=== PATIENT | male | born 1950 | race American Indian/Alaskan Native ===

== ENCOUNTER 2020-08-31 13:53 | Emergency (ER) | payer MEDICARE, MEDICAID ==
[2020-08-31] MEDS ORDERED: HYDROcodone/ACETAMINOPHEN 10-325MG TAB PO ONE (15:32)
--- NOTE | 2020-08-31 15:32 | Emergency Department Report ---
ED Lower Extremity HPI - General Chief Complaint: Extremity Injury, Lower Stated Complaint: LEFT LEG INJURY Time Seen by Provider: 08/31/20 14:56 Source: patient Mode of arrival: Wheelchair Limitations: No Limitations - History of Present Illness Initial Comments: 70-year-old male presents to the ER today with complaints of left knee pain. Patient states that he slipped and fell in his driveway while she was pulling his trash can back out of the road. Patient states that he landed with his knee in a hyperflexed position. He reports significant pain as well as swelling and some mild bruising to his left knee. Patient reports significant pain on weightbearing and ambulation and flexion of the knee. He denies any prior injury or surgeries to that knee. He states that he took some Advil prior to coming in but still painful. He denies any head injury or any other symptoms. MD Complaint: other (left knee injury ) -: Sudden - Related Data Previous Rx's Medication Instructions Recorded Last Taken Type Acetaminophen/Codeine [Tylenol 1 tab PO Q4HR PRN #12 tablet 08/31/20 Unknown Rx /Codeine # 3 tab] Ibuprofen [Motrin] 600 mg PO Q8H PRN #30 tablet 08/31/20 Unknown Rx Allergies Allergy/AdvReac Type Severity Reaction Status Date / Time No Known Allergies Allergy Unverified 08/31/20 13:57 ED Review of Systems ROS: Stated complaint: LEFT LEG INJURY Other details as noted in HPI Comment: All other systems reviewed and negative Respiratory: denies: cough, shortness of breath, wheezing Cardiovascular: denies: chest pain, palpitations Musculoskeletal: joint swelling, arthralgia Neurological: denies: headache, weakness, numbness, paresthesias, confusion, abnormal gait, vertigo ED Past Medical Hx - Past Medical History Previous Medical History?: Yes Hx Hypertension: Yes - Medications Home Medications: Home Medications Medication Instructions Recorded Confirmed Last Taken Type Acetaminophen/Codeine [Tylenol 1 tab PO Q4HR PRN #12 tablet 08/31/20 Unknown Rx /Codeine # 3 tab] Ibuprofen [Motrin] 600 mg PO Q8H PRN #30 tablet 08/31/20 Unknown Rx ED Physical Exam - General Limitations: No Limitations General appearance: alert, in distress (Mild distress sec to pain ) - Head Head exam: Present: atraumatic, normocephalic, normal inspection - Respiratory Respiratory exam: Present: normal lung sounds bilaterally. Absent: respiratory distress - Cardiovascular Cardiovascular Exam: Present: regular rate, normal rhythm, normal heart sounds - Expanded Lower Extremity Exam Left Knee exam: Present: tenderness (Moderate anteriorly), swelling (Mild), ecchymosis (Mild ). Absent: full ROM, abrasion, laceration, deformity, crepidus, dislocation, erythema, effusion, full knee extension Gait: Positive: unable to bear weight (Due to pain in left knee) - Neurological Exam Neurological exam: Present: alert, oriented X3, CN II-XII intact - Psychiatric Psychiatric exam: Present: normal affect, normal mood - Skin Skin exam: Present: intact ED Course Vital Signs 08/31/20 08/31/20 08/31/20 13:57 15:37 17:01 Temperature 98.0 F Pulse Rate 72 68 Respiratory 18 18 18 Rate Blood Pressure 208/97 Blood Pressure 188/86 [Left] O2 Sat by Pulse 100 96 Oximetry ED Lower Extremity MDM - Radiology Data Radiology results: report reviewed Patient: MULU DIAS MR#: [id number] 57 : 1950 Acct:[id number] Age/Sex: 70 / M ADM Date: 08/31/20 Loc: ED Attending Dr: Ordering Physician: CRHISTY COOK Date of Service: 08/31/20 Procedure(s): XR knee 3V LT Accession Number(s): [id number] cc: CHRISTY COOK Fluoro Time In Minutes: LEFT KNEE 3 VIEW(S) INDICATION / CLINICAL INFORMATION: Knee injury/pain COMPARISON: None available. FINDINGS: BONES / JOINT(S): No acute fracture or subluxation. There is up to moderate tricompartmental degenerative changes of the left knee, with slight preferential involvement of the medial and patellofemoral compartments. No worrisome joint effusion. SOFT TISSUES: No significant abnormality. ADDITIONAL FINDINGS: None. IMPRESSION: Left knee osteoarthritis. No acute process is identified. Signer Name: Arsalan Ramirez MD Signed: 08/31/2020 4:06 PM Workstation Name: [id number] Transcribed By: JS Dictated By: ARSALAN RAMIREZ MD Electronically Authenticated By: ARSALAN RAMIREZ MD Signed Date/Time: 08/31/20 1776 DD/ 1605 Critical care attestation.: If time is entered above; I have spent that time in minutes in the direct care of this critically ill patient, excluding procedure time. ED Disposition Clinical Impression: Left knee sprain, Arthritis of knee, left Disposition: - TO HOME OR SELFCARE Is pt being admited?: No Does the pt Need Aspirin: No Condition: Stable Instructions: Arthritis, [place], Knee Sprain, Adult Additional Instructions: Rest, ice and elevate your leg for the next 2 to 3 days. Use the Silverio wrap as instructed and use the crutches to help ambulate. Take the pain medications as prescribed. Follow-up with environmental programs specialist in 1 to 2 weeks if his symptoms persist. Return to the ER if your symptoms changes or worsens in any way. Prescriptions: Ibuprofen [Motrin] 600 mg PO Q8H PRN #30 tablet PRN Reason: Pain Acetaminophen/Codeine [Tylenol /Codeine # 3 tab] 1 tab PO Q4HR PRN #12 tablet PRN Reason: Pain Referrals: JUSTYNA JACSKON MD [Staff Physician] - 7-10 days Time of Disposition: 16:38
--- NOTE | 2020-08-31 16:10 | XRay Report ---
LEFT KNEE 3 VIEW(S) INDICATION / CLINICAL INFORMATION: Knee injury/pain COMPARISON: None available. FINDINGS: BONES / JOINT(S): No acute fracture or subluxation. There is up to moderate tricompartmental degenera tive changes of the left knee, with slight preferential involvement of the medial and patellofemoral compartments. No worrisome joint effusion. SOFT TISSUES: No significant abnormality. ADDITIONAL FINDINGS: None. IMPRESSION: Left knee osteoarthritis. No acute process is identified. Signer Name: Narinder Ramirez MD Signed: 08/31/2020 4:06 PM Workstation Name: [id number]
[2020-08-31 17:04] VITALS: BP 188/86
== END 2020-08-31 17:01 | disposition home or self-care (01) ==
LOC: ED 13:53
DX: S83.92XA Sprain of unspecified site of left knee, initial encounter (principal); M17.12 Unilateral primary osteoarthritis, left knee; I10 Essential (primary) hypertension; Z79.1 Long term (current) use of non-steroidal anti-inflammatories (NSAID); Z79.899 Other long term (current) drug therapy; W01.0XXA Fall on same level from slipping, tripping and stumbling without subsequent striking against object, initial encounter; Y93.89 Activity, other specified; Y92.89 Other specified places as the place of occurrence of the external cause; Y99.8 Other external cause status

== ENCOUNTER 2021-02-24 18:45 | Emergency (ER) | payer MEDICARE, MEDICAID ==
--- NOTE | 2021-02-24 20:45 | Emergency Department Report ---
<DEREK SHAH - Last Filed: 02/24/21 20:46> ED General Adult HPI - General Chief complaint: Extremity Injury, Lower Stated complaint: LEG PAIN Time Seen by Provider: 02/24/21 20:43 - History of Present Illness Initial comments: 71-year-old male patient presents to the emergency department with complaints of left knee pain for 6 months. Patient was evaluated in the emergency department for this issue 6 months ago. X-rays showed tricompartmental degenerative changes of the knee. Patient was advised to follow-up with orthopedics and with physical therapy. Patient has not followed up with anyone since his last ED visit in August 2020. Patient reports limited range of motion and painful weightbearing. Symptoms are unchanged today. Patient is not taking any pain medication. Patient is not anticoagulated. Denies fever, chills, hip pain, foot pain, ankle pain, calf pain/swelling, paresthesias, numbness, weakness. Denies all other complaints at this time. - Related Data Previous Rx's Medication Instructions Recorded Last Taken Type Acetaminophen/Codeine [Tylenol 1 tab PO Q4HR PRN #12 tablet 08/31/20 Unknown Rx /Codeine # 3 tab] Ibuprofen [Motrin] 600 mg PO Q8H PRN #30 tablet 08/31/20 Unknown Rx Allergies Allergy/AdvReac Type Severity Reaction Status Date / Time No Known Allergies Allergy Unverified 08/31/20 13:57 ED Review of Systems Other: GENERAL: Negative for fever. CARDIOVASCULAR: Negative for chest pain. PULMONARY: Negative for shortness of breath. GASTROINTESTINAL: Negative for abdominal pain. MUSCULOSKELETAL: Positive for knee pain and swelling. NEUROLOGICAL: Negative for headache. INTEGUMENTARY: Negative for rash. ED Past Medical Hx - Past Medical History Hx Hypertension: Yes - Medications Home Medications: Home Medications Medication Instructions Recorded Confirmed Last Taken Type Acetaminophen/Codeine [Tylenol 1 tab PO Q4HR PRN #12 tablet 08/31/20 Unknown Rx /Codeine # 3 tab] Ibuprofen [Motrin] 600 mg PO Q8H PRN #30 tablet 08/31/20 Unknown Rx ED Physical Exam - Other Other exam information: General: Awake, appropriately interactive, no acute distress. Neck: Supple. Full range of motion intact. Cardiovascular: Normal peripheral perfusion. No calf tenderness. No lower extremity edema. Pulmonary: No respiratory distress. Patient is speaking normally without use of accessory muscles. Skin: No apparent rashes or lesions. Neurological: No facial asymmetry. Speech is clear. Follows commands. Patient is alert and oriented. Musculoskeletal: Tenderness to palpation throughout the left knee with suprapatellar soft tissue swelling. Flexion mechanism intact and painless. Extension is partially intact and painless however limited as compared with the right. Patient is weightbearing without assistance. Pain is appropriately proportional to exam findings. There is no overlying warmth or erythema. Dist al neurovascular and motor/sensory function intact. Psych: Cooperative. Appropriate mood and affect. ED Medical Decision Making - Medical Decision Making Differential diagnosis including but not limited to: sprain, strain, fracture, contusion, dislocation, arterial occlusion, deep vein thrombosis, arthritis Patient presents to the emergency department with complaints of chronic left knee pain and swelling, unchanged today. He has previously been instructed to wear an SILVERIO wrap but has been non-compliant because "it feels tight" and he is not sure where the SILVERIO wrap is. When asked why he came to the emergency department today, patient states, "I haven't been able to go to physical therapy and I just want to be able to move my knee like I used to." He is afebrile, hemodynamically stable, neurovascularly intact, ambulatory without assistance. Clinical presentation is not suggestive of septic joint, vascular occlusion, or traumatic injury warranting further diagnostic work-up on an emergent basis at this time. Patient will be discharged home with an Silverio wrap and referred to orthopedics for close outpatient follow-up. Emphasized the importance of scheduling an appointment with orthopedics tomorrow in order to arrange physical therapy and coordinate definitive management of ongoing knee pain. Patient expressed understanding and is agreeable to plan of care. Strict return precautions provided. BILLING/CODING: This patient encounter does not represent a certified medical emergency. ED Disposition Clinical Impression: History of arthritis Chronic knee pain Qualifiers: Laterality: left Qualified Code(s): M25.562 - Pain in left knee Disposition: 01 HOME / SELF CARE / HOMELESS Is pt being admited?: No Does the pt Need Aspirin: No Condition: Stable Instructions: Chronic Knee Pain, Adult, [id number] Additional Instructions: Take Tylenol every 4 hours as needed for pain. Take Motrin every 8 hours as needed for pain. Apply heat to affected area as needed for pain. Wear Silverio wrap as directed. Follow-up with Dr. Vaughan, orthopedics, this week. Call tomorrow to schedule an appointment. Dr. Vaughan's office will help you coordinate physical therapy. Physical therapy is an essential part of definitive management of ongoing knee pain. Return to the emergency department immediately for new or worsening symptoms. Referrals: JUSTYNA VAUGHAN MD [Staff Physician] - 3-5 Days Time of Disposition: 20:55 <SUZI JORGENSEN S - Last Filed: 02/24/21 21:32> ED Review of Systems ROS: Stated complaint: LEG PAIN Other details as noted in HPI ED Medical Decision Making - Medical Decision Making This patient was evaluated and dispositioned by the advanced practitioner. I wa s available for consultation. Critical care attestation.: If time is entered above; I have spent that time in minutes in the direct care of this critically ill patient, excluding procedure time. ED Disposition Is pt being admited?: No
== END 2021-02-24 22:05 | disposition home or self-care (01) ==
LOC: ED 18:45
DX: M25.562 Pain in left knee (principal); M19.90 Unspecified osteoarthritis, unspecified site; I10 Essential (primary) hypertension
CPT/HCPCS: 99282